=== PATIENT | male | born 1970 | race Caucasian/White ===

== ENCOUNTER 2018-06-28 13:21 | Emergency (ER) | payer SELFPAY ==
[~2018-06-28] VITALS: Ht 172.7 cm; Wt 105.2 kg
[~2018-06-28 13:21] MED LIST: ANTIVERT12.5 MG PO; BUS5 PO
[2018-06-28 13:28] VITALS: Ht 172.7 cm; Wt 105.2 kg
[2018-06-28 14:54] VITALS: BP 125/84
== END 2018-06-28 14:54 | disposition home or self-care (01) ==
LOC: ED 13:21
DX: R22.1 Localized swelling, mass and lump, neck (principal)
CPT/HCPCS: Q0092